=== PATIENT | female | born 1940 | race Caucasian/White ===

== ENCOUNTER 2017-02-09 08:37 | Inpatient (IN) ==
[2017-02-07 17:45] LABS: Basophils # (Auto) 0.1 K/mcL (0.0-0.3); Basophils % (Auto) 0.9 % (0.0-2.0); Eosinophils # (Auto) 0.1 K/mcL (0.0-0.7); Eosinophils % (Auto) 2.5 % (0.0-7.0); Granulocytes % (Auto) 48.2 % (38.0-78.0); Lymphocytes # (Auto) 2.5 K/mcL (1.5-4.8); Lymphocytes % (Auto) 41.8 % (15.5-49.0); Mean Cell Volume 90.6 fL (80.0-100.0); Mean Corpuscular HGB Conc 34.1 g/dL (31.0-36.0); Mean Corpuscular Hemoglobin 30.9 pg (26.0-34.0); Monocytes # (Auto) 0.4 K/mcL (0.1-0.9); Monocytes % (Auto) 6.6 % (1.0-12.0); Platelet Count 278 K/mcL (140-440); RBC 3.95 M/mcL (4.00-5.20); Red Cell Distribution Width 13.8 % (11.5-14.5)
[2017-02-07 18:11] LABS: Blood Urea Nitrogen 23 mg/dl (8-23)
[2017-02-07 18:25] LABS: Appearance,Urine CLEAR; Bacteria,Urine 0 /hpf (0); Bilirubin,Urine NEG (NEG); Color,Urine YELLOW; Glucose,Urine (UA) NEGATIVE (NEG); Leukocyte Esterase,Urine 250 /uL (NEG); Mucus,Urine FEW /hpf (0); Nitrate,Urine NEG (NEG); Protein,Urine NEG (NEG); Specific Gravity,Urine 1.018 (1.000-1.035); Urine Blood NEG mg/dL (<0.03); Urine RBC 0 /hpf (0-1); Urine Squamous Epithelial Cell 1 /hpf (0-4); Urine WBC 12 /hpf (0-4); Urobilinogen,Urine NEG (NEG)
[~2017-02-09 08:37] MED LIST: ACETAMINOPHEN 500 MG TABLET PO SCH; CELECOXIB 200 MG CAPSULE PO SCH; PREGABALIN 75 MG CAPSULE PO SCH; ceFAZolin 1 GM VIAL IV SCH; oxyCODONE 10 MG TAB.ER.12H PO SCH
[2017-02-09 09:41] LABS: Appearance,Urine HAZY; Bacteria,Urine 0 /hpf (0); Bilirubin,Urine NEG (NEG); Color,Urine YELLOW; Glucose,Urine (UA) NEGATIVE (NEG); Leukocyte Esterase,Urine 25 /uL (NEG); Mucus,Urine MOD /hpf (0); Nitrate,Urine NEG (NEG); Protein,Urine NEG (NEG); Specific Gravity,Urine 1.019 (1.000-1.035); Urine Blood NEG mg/dL (<0.03); Urine Hyaline Cast 37 /lpf (0-2); Urine RBC 3 /hpf (0-1); Urine Squamous Epithelial Cell < 1 /hpf (0-4); Urine WBC 3 /hpf (0-4); Urobilinogen,Urine NEG (NEG)
[2017-02-09] MEDS ORDERED: KETOROLAC 30 MG, ROPIVACAINE HCL/PF 49.5 ML, EPINEPHrine 0.5 MG, 0.9 % SODIUM CHLORIDE ... IJ ONE (11:00)
[2017-02-09] MEDS ORDERED: SCOPOLAMINE 1 PATCH PATCH TOPICAL ONE (12:47)
[2017-02-09] MEDS ORDERED: ROPIVACAINE HCL/PF 20 ML VIAL IJ ONE (13:00)
[2017-02-09] MEDS ORDERED: MIDAZOLAM 2 MG/2 ML VIAL IV ONE (13:00)
[2017-02-09] MEDS ORDERED: DEXAMETHASONE 10 MG/ML VIAL IV ONE (13:00)
[2017-02-09] MEDS ORDERED: KETAMINE 100 MG/ML ML IV ONE (13:00)
[2017-02-09] MEDS ORDERED: PROPOFOL 200 MG/20 ML VIAL IV ONE (13:00)
[2017-02-09] MEDS ORDERED: LIDOCAINE HCL/PF 100 MG/5 ML SYRINGE IV ONE (13:00)
[2017-02-09] MEDS ORDERED: GLYCOPYRROLATE 0.2 MG/ML VIAL IV ONE (13:00)
[2017-02-09] MEDS ORDERED: TRANEXAMIC ACID 1,000 MG/10 ML VIAL IV ONE (13:00)
[2017-02-09] MEDS ORDERED: ONDANSETRON 4 MG/2 ML VIAL IV ONE (13:00)
[2017-02-09] MEDS ORDERED: BENZOCAINE/MENTHOL 1 LOZENGE PO PRN ×2 (14:04→14:35)
[2017-02-09] MEDS ORDERED: fentaNYL 100 MCG/2 ML VIAL IV PRN (14:04)
[2017-02-09] MEDS ORDERED: MEPERIDINE 25 MG/ML SYRINGE IV PRN (14:04)
[2017-02-09] MEDS ORDERED: ONDANSETRON 4 MG/2 ML VIAL IV PRN ×2 (14:04→14:35)
[2017-02-09] MEDS ORDERED: METHOCARBAMOL 1,000 MG/10 ML VIAL IV PRN (14:04)
[2017-02-09] MEDS ORDERED: IPRATROPIUM/ALBUTEROL 3 ML AMPUL.NEB NEB PRN (14:04)
[2017-02-09] MEDS ORDERED: ePHEDrine 50 MG/ML AMPUL IV PRN (14:04)
[2017-02-09] MEDS ORDERED: METOCLOPRAMIDE 10 MG/2 ML VIAL IV PRN (14:04)
[2017-02-09] MEDS ORDERED: LACTATED RINGERS 1,000 ML IV SCH (14:15)
[2017-02-09] MEDS ORDERED: GENTAMICIN SULFATE 800 MG/20 ML VIAL IR ONE (14:18)
--- NOTE | 2017-02-09 14:34 | Brief Operative Note ---
Date of procedure: 02/09/17 Pre-op diagnosis: Left knee djd Post-op diagnosis: same Procedure: Left knee basilio tka Grafts/Implants: Yes Anesthesia: GETA Complications: none Complications Description: 02/09/17 14:34 none Surgeon: Valerio Alvarenga Chemical Tester: Munir Ortega Estimated blood loss (cc): 20 Tourniquet Time (Minutes): 50 Specimens Removed/Pathology: none sent Condition: stable Disposition: PACU
[2017-02-09] MEDS ORDERED: HYDROmorphone 2 MG/ML SYRINGE IV PRN (14:35)
[2017-02-09] MEDS ORDERED: TRANEXAMIC ACID 1,000 MG/10 ML VIAL IV SCH (14:35)
[2017-02-09] MEDS ORDERED: MAGNESIUM HYDROXIDE 30 ML ORAL.SUSP PO PRN (14:35)
[2017-02-09] MEDS ORDERED: POLYETHYLENE GLYCOL 3350 17 GM PACKET PO PRN (14:35)
[2017-02-09] MEDS ORDERED: FLEETS ADULT ENEMA PR PRN (14:35)
[2017-02-09] MEDS ORDERED: ACETAMINOPHEN 325 MG TABLET PO PRN (14:35)
[2017-02-09] MEDS ORDERED: BISACODYL 10 MG SUPP.RECT PR PRN (14:35)
[2017-02-09] MEDS ORDERED: ACETAMINOPHEN 500 MG TABLET PO PRN (14:47)
--- NOTE | 2017-02-09 15:16 | XRay Report ---
HISTORY: Reason for Exam:Post-Op Total Knee FINDINGS: There is a well positioned total knee prosthesis. There is no fracture. IMPRESSION: Well-positioned left knee prosthesis Interpreted and Authenticated by: Suresh Iglesias 02/09/17
--- NOTE | 2017-02-09 16:28 | Operative Note ---
DATE OF OPERATION: 02/09/2017 PREOPERATIVE DIAGNOSIS: Left knee degenerative arthritis, severe. POSTOPERATIVE DIAGNOSIS: Left knee degenerative arthritis, severe. PROCEDURE: Left ANUJ robot total knee arthroplasty. SURGEON: Valerio Alvarenga M.D. CYTOTECHNOLOGIST: Munir Ortega PA-C. ANESTHESIA: General LMA anesthesia. COMPLICATIONS: None. TOTAL TOURNIQUET TIME: 50 minutes. ESTIMATED BLOOD LOSS: About 20 mL. IMPLANTS: A size 2 femur, size 2 tibia with an 11 mm poly with a 38 mm patella. DESCRIPTION OF PROCEDURE: The patient was brought to the operating room and put to sleep with general LMA anesthesia. Once asleep, the patient had the left leg sterilely prepped and draped in the usual sterile fashion. Once this was confirmed as the operative site, I then made a midline incision, a mid vastus approach performed. We then placed two pins above and below the knee. I predrilled the tibia with the drill and then placed the pins. I then placed the arrays, registered the center hip rotation. We then removed osteophytes and balanced the knee after placing and registering 30 points on the femur and tibia. Once this was done, we irrigated thoroughly. We then brought in the robot, registered the robot and then made our cuts accordingly. This made our distal femoral cut, made our anterior and posterior cut and made our tibial cut. The bony fragments were removed and removed osteophytes posteriorly. We then removed the meniscus medially and laterally. We then placed the components, set rotation of the tibial baseplate. I then balanced the knee with a 9 poly. This was a little too loose with range of motion. I then placed an 11 mm poly. I then implanted the size 2 tibial baseplate with cement after preparing the bone with pulse lavage and CarboJet. Once dried, I then placed the cement on the bone and then placed the implant with appropriate external rotation. The femoral component was placed with excess cement being removed. We placed an 11 mm poly, prepared the patella with a 32 mm patella. This covered the patella nicely with a small chamfer cut laterally. This was cemented into place after preparing the bone to the patella with CarboJet and pulse lavage. I irrigated thoroughly and deflated the tourniquet at 50 minutes and then controlled bleeding. I made sure there was no more debris, took the knee through range of motion after the cement had dried. We kept it at 45 degrees until cement was dry. We then closed the capsule with #1 Stratafix. Two Stratafix sutures were used to close the medial capsule. We closed the skin with 2-0 Vicryl and adhesive closure. Once closed, I took the knee through range of motion which was excellent, very stable. Using the robot to register the final implant was 0 degrees extension, varus valgus 1 degree of varus. This was perfectly aligned. We irrigated thoroughly and then placed a sterile bandage on the knee. The patient tolerated this well without complication. [email or web address] Job ID: [id number] Doc ID: [id number] Valerio Alvarenga MD
[2017-02-09] MEDS: HYDROcodone/APAP 10/325MG TABLET PO PRN ×2 (16:58→23:16)
[2017-02-09] MEDS: KETOROLAC 15 MG/ML VIAL IV SCH (16:59)
[2017-02-09] MEDS: 0.45 % SODIUM CHLORIDE 1,000 ML IV SCH (17:01)
[2017-02-09] MEDS: 0.9 % SODIUM CHLORIDE 10 ML SYRINGE IV SCH (20:03)
[2017-02-09] MEDS: MAGNESIUM OXIDE 400 MG TABLET PO SCH (20:03)
[2017-02-09] MEDS: ASPIRIN 325 MG ENTERIC COATED TABLET PO SCH (20:03)
[2017-02-09] MEDS: FISH OIL 1,000 MG CAPSULE PO SCH (20:03)
[2017-02-09] MEDS: DOCUSATE SODIUM 100 MG CAPSULE PO SCH (20:03)
[2017-02-09] MEDS: ceFAZolin 1 GM VIAL IV SCH (20:16)
[2017-02-09] MEDS ORDERED: ATORVASTATIN 20 MG TABLET PO SCH (21:00)
[2017-02-09] MEDS ORDERED: TEMAZEPAM 15 MG CAPSULE PO PRN (21:00)
[2017-02-09] MEDS ORDERED: SENNOSIDES 1 TABLET PO SCH (21:00)
[2017-02-10] MEDS: KETOROLAC 15 MG/ML VIAL IV SCH ×3 (00:44→12:21)
[2017-02-10] MEDS: 0.45 % SODIUM CHLORIDE 1,000 ML IV SCH ×2 (00:45→12:02)
[2017-02-10] MEDS: ceFAZolin 1 GM VIAL IV SCH (05:33)
[2017-02-10] MEDS: 0.9 % SODIUM CHLORIDE 10 ML SYRINGE IV SCH ×2 (05:33→16:06)
[2017-02-10] MEDS ORDERED: LEVOTHYROXINE 25 MCG TABLET PO SCH (07:30)
[2017-02-10] MEDS ORDERED: BIOTIN 10000 MCG PO SCH (09:00)
[2017-02-10] MEDS ORDERED: VIT A,C & E/LUTEIN/MINERALS TABLET PO SCH (09:00)
[2017-02-10] MEDS ORDERED: LOSARTAN 50 MG TABLET PO SCH (09:00)
[2017-02-10] MEDS ORDERED: amLODIPine 5 MG TABLET PO SCH (09:00)
[2017-02-10] MEDS ORDERED: MULTIVIT,THER IRON,CA,FA & MIN 1 TABLET PO SCH (09:00)
[2017-02-10] MEDS: ASPIRIN 325 MG ENTERIC COATED TABLET PO SCH (09:35)
[2017-02-10] MEDS: DOCUSATE SODIUM 100 MG CAPSULE PO SCH (09:35)
[2017-02-10] MEDS: FISH OIL 1,000 MG CAPSULE PO SCH (09:36)
[2017-02-10] MEDS: MAGNESIUM OXIDE 400 MG TABLET PO SCH (09:36)
[2017-02-10] MEDS: HYDROcodone/APAP 10/325MG TABLET PO PRN ×2 (09:46→11:18)
--- NOTE | 2017-02-10 10:45 | Discharge Summary ---
Ortho Discharge - TKA - Patient Instructions Diet: Regular Diet Activity: activity as tolerated, weight bearing as tolerated Total Knee Protocol: For Total Knee: Start ROM ISAIAH with stationary bike or rocking chair. Work on gaining full extension of knee. Posterior dislocation precautions provided. Hip abductor strengthening and gait training instructions provided. Apply Cryocuff as instructed. Dressing Care: Aquacel Ag - leave on for 5 days Patient Education: Total Knee Replacement (DC) Additional Instructions: Discharge Instructions: Do the exercises at home that physical therapy gave you. You are scheduled to start physical therapy at [facility] ([phone]) on at 1:30 pm, please arrive 15 minutes early for paperwork. Take your prescription, photo ID, insurance cards, and current medication list with you to your first physical therapy appointment. Take your prescription to [facility]le [facility] maker any medication or equipment (such as walker, crutches, toilet riser or C.P.M.) Wear comfortable clothing for your physical therapy. Weight bearing as tolerated. You have Dermabond (a dressing with a mesh-like appearance), leave open to air. Do not remove this dressing. You may start showering on post op day #2. The Dermabond dressing can get wet, do not scrub dressing. Pat dry. To avoid constipation while taking any narcotic pain medication, take an over the counter stool softener/laxative. Use your Cryocuff or ice packs as directed, on for 20 minutes at a time throughout the day. This and elevation will help with pain and swelling. Call your physician for fevers above 100.5 or pain not controlled by medication. Your prescriptions are with your discharge information. Some medications were electronically transmitted to your pharmacy of choice. - Follow Up Plan Follow Up Appointments: Valerio Alvarenga MD [Family Provider] - 02/22/17 9:30 am Disposition: Home, Self-Care Prognosis: Good Rehab Potential: Good I certify that the patient requires SNF services: No Overall status at discharge: patient is progressing back to baseline - Orders For Discharge Additional Discharge Orders: Physical Therapy at Discharge - TKA Location: Determined By Patient Toilet Riser Discharge Order Location: Determined By Patient Walker Location: Determined By Patient
--- NOTE | 2017-02-10 10:52 | Discharge Summary ---
Ortho Discharge - TKA - Patient Instructions Diet: Regular Diet Activity: activity as tolerated, weight bearing as tolerated Total Knee Protocol: For Total Knee: Start ROM ISAIAH with stationary bike or rocking chair. Work on gaining full extension of knee. Posterior dislocation precautions provided. Hip abductor strengthening and gait training instructions provided. Apply Cryocuff as instructed. Patient Education: Total Knee Replacement (DC) Additional Instructions: Discharge Instructions: Do the exercises at home that physical therapy gave you. You are scheduled to start physical therapy at [facility] ([phone]) on at 1:30 pm, please arrive 15 minutes early for paperwork. Take your prescription, photo ID, insurance cards, and current medication list with you to your first physical therapy appointment. Take your prescription to pickler helper any medication or equipment (such as walker, crutches, toilet riser or C.P.M.) Wear comfortable clothing for your physical therapy. Weight bearing as tolerated. You have Dermabond (a dressing with a mesh-like appearance), leave open to air. Do not remove this dressing. You may start showering on post op day #2. The Dermabond dressing can get wet, do not scrub dressing. Pat dry. To avoid constipation while taking any narcotic pain medication, take an over the counter stool softener/laxative. Use your Cryocuff or ice packs as directed, on for 20 minutes at a time throughout the day. This and elevation will help with pain and swelling. Call your physician for fevers above 100.5 or pain not controlled by medication. Your prescriptions are with your discharge information. Some medications were electronically transmitted to your pharmacy of choice. - Follow Up Plan Follow Up Appointments: Valerio Alvarenga MD [Family Provider] - 02/22/17 9:30 am Disposition: Home, Self-Care Prognosis: Good Rehab Potential: Good I certify that the patient requires SNF services: No - Orders For Discharge Prescriptions: oxyCODONE/APAP [Percocet 5-325 mg] 1 - 2 tab PO Q4H PRN #60 tab PRN Reason: Pain Additional Discharge Orders: Physical Therapy at Discharge - TKA Location: Determined By Patient CPM Discharge Order Location: Determined By Patient Toilet Riser Discharge Order Location: Determined By Patient Walker Location: Determined By Patient
[2017-02-11] MEDS ORDERED: VITAMIN D3 1,000 UNIT TABLET PO SCH (09:00)
== END 2017-02-10 16:50 | disposition home or self-care (01) | DRG 470 ==
LOC: MEDSUR 08:37
PROVIDERS: ADMIT Orthopaedic Surgery; ATTEND Orthopaedic Surgery

== ENCOUNTER 2019-11-24 05:59 | Inpatient (IN) ==
[2019-11-17 15:10] LABS: Basophils # (Auto) 0.05 K/mcL (0.00-0.30); Eosinophils # (Auto) 0.25 K/mcL (0.00-0.70); Eosinophils % (Auto) 4.8 % (0.0-7.0); Granulocytes % (Auto) 44.6 % (38.0-78.0); Hemoglobin 11.2 g/dL (11.2-15.7); Lymphocytes # (Auto) 2.06 K/mcL (1.50-4.80); Lymphocytes % (Auto) 39.9 % (15.5-49.0); Mean Cell Volume 90.9 fL (80.0-100.0); Mean Platelet Volume 9.2 fL (7.4-10.4); Monocytes % (Auto) 9.7 % (1.0-12.0); Platelet Count 390 K/mcL (140-440); RBC 3.85 M/mcL (3.59-5.38); Red Cell Distribution Width 14.6 % (11.5-14.5); WBC 5.2 K/mcL (4.50-11.00)
[2019-11-17 15:11] LABS: Blood Urea Nitrogen 21 mg/dl (8-23); Calcium 9.6 mg/dl (8.6-10.4); Carbon Dioxide 23 mmol/L (22-30); Chloride 99 mmol/L (96-108); Glomerular Filtration Rate 48; Glucose 85 mg/dL (70-105)
[2019-11-17 16:10] LABS: Appearance,Urine CLEAR; Bacteria,Urine FEW /hpf (0); Bilirubin,Urine NEG (NEG); Color,Urine YELLOW; Culture Indicated,Urine YES; Glucose,Urine (UA) NEGATIVE (NEG); Ketones,Urine NEG (NEG); Leukocyte Esterase,Urine 75 /uL (NEG); Nitrate,Urine NEG (NEG); Protein,Urine NEG (NEG); Specific Gravity,Urine 1.019 (1.000-1.035); Urine Blood NEG mg/dL (<0.03); Urine Hyaline Cast 8 /lpf (0-2); Urine RBC 1 /hpf (0-1); Urine Squamous Epithelial Cell 1 /hpf (0-4); Urine WBC 14 /hpf (0-4); Urobilinogen,Urine NEG (NEG)
[2019-11-17 16:15] LABS: INR 0.9 (0.9-1.1); Prothrombin Time 12.9 sec (11.9-14.5)
[~2019-11-24 05:59] MED LIST changes: -ACETAMINOPHEN 500 MG TABLET PO SCH; -CELECOXIB 200 MG CAPSULE PO SCH; +IPRATROPIUM/ALBUTEROL 3 ML AMPUL.NEB NEB PRN; -PREGABALIN 75 MG CAPSULE PO SCH; +SCOPOLAMINE 1 PATCH PATCH TOPICAL PRN; -ceFAZolin 1 GM VIAL IV SCH; -oxyCODONE 10 MG TAB.ER.12H PO SCH
[2019-11-24] MEDS ORDERED: ACETAMINOPHEN 500 MG TABLET PO SCH (06:00)
[2019-11-24] MEDS ORDERED: CELECOXIB 200 MG CAPSULE PO SCH (06:00)
[2019-11-24] MEDS ORDERED: ceFAZolin 2 GM in DEXTROSE 5% IN WATER 50 ML IV SCH (06:00)
[2019-11-24] MEDS ORDERED: PREGABALIN 75 MG CAPSULE PO SCH (06:00)
[2019-11-24] MEDS ORDERED: oxyCODONE 10 MG TAB.ER.12H PO SCH (06:00)
[2019-11-24 07:20] LABS: Appearance,Urine CLEAR; Bilirubin,Urine NEG (NEG); Color,Urine YELLOW; Glucose,Urine (UA) NEGATIVE (NEG); Ketones,Urine NEG (NEG); Leukocyte Esterase,Urine NEG /uL (NEG); Nitrate,Urine NEG (NEG); Protein,Urine NEG (NEG); Specific Gravity,Urine 1.018 (1.000-1.035); Urine Blood NEG mg/dL (<0.03); Urobilinogen,Urine NEG (NEG)
[2019-11-24] MEDS ORDERED: fentaNYL 250 MCG/5 ML VIAL IV ONE (09:29)
[2019-11-24] MEDS ORDERED: TRANEXAMIC ACID 1,000 MG/10 ML VIAL IV ONE ×2 (09:29→10:35)
[2019-11-24] MEDS ORDERED: DEXAMETHASONE 10 MG/ML VIAL IV ONE (09:29)
[2019-11-24] MEDS ORDERED: GLYCOPYRROLATE 0.2 MG/ML VIAL IV ONE (09:29)
[2019-11-24] MEDS ORDERED: SUCCINYLCHOLINE 20 MG/ML ML IV ONE (09:29)
[2019-11-24] MEDS ORDERED: PROPOFOL 200 MG/20 ML VIAL IV ONE (09:29)
[2019-11-24] MEDS ORDERED: ONDANSETRON 4 MG/2 ML VIAL IV ONE (09:29)
[2019-11-24] MEDS ORDERED: LIDOCAINE HCL/PF 100 MG/5 ML SYRINGE IV ONE (09:29)
[2019-11-24] MEDS ORDERED: KETAMINE 100 MG/ML ML IV ONE (09:29)
[2019-11-24] MEDS ORDERED: ROPIVACAINE HCL/PF 20 ML VIAL IJ ONE (09:29)
--- NOTE | 2019-11-24 10:34 | Brief Operative Note ---
Brief Operative Note Date of procedure: 11/24/19 Pre-op diagnosis: right shoulder rca Post-op diagnosis: same Procedure: Right reverse tsa Grafts/Implants: Yes Anesthesia: GETA Findings: severe djd and rca Complications: none Surgeon: Valerio Alvarenga Hollow Handle Bench Worker: Munir Ortega Estimated blood loss (cc): 40 Tourniquet Time (Minutes): 0 Specimens Removed/Pathology: none sent Condition: stable Disposition: PACU
[2019-11-24] MEDS ORDERED: ONDANSETRON 4 MG/2 ML VIAL IV PRN (10:35)
[2019-11-24] MEDS ORDERED: KETOROLAC 15 MG/ML VIAL IV PRN (10:35)
[2019-11-24] MEDS ORDERED: HYDROmorphone 1 MG/ML SYRINGE IV PRN (10:35)
[2019-11-24] MEDS ORDERED: BISACODYL 10 MG SUPP.RECT PR PRN (10:35)
[2019-11-24] MEDS ORDERED: ACETAMINOPHEN 325 MG TABLET PO PRN (10:35)
[2019-11-24] MEDS ORDERED: FLEETS ADULT ENEMA PR PRN (10:35)
[2019-11-24] MEDS ORDERED: POLYETHYLENE GLYCOL 3350 17 GM PACKET PO PRN (10:35)
[2019-11-24] MEDS ORDERED: TEMAZEPAM 15 MG CAPSULE PO PRN (10:35)
[2019-11-24] MEDS ORDERED: MAGNESIUM HYDROXIDE 30 ML ORAL.SUSP PO PRN (10:35)
[2019-11-24] MEDS ORDERED: BENZOCAINE/MENTHOL 1 LOZENGE PO PRN (10:35)
[2019-11-24] MEDS ORDERED: HYDROcodone/APAP 10/325MG TABLET PO PRN (10:35)
[2019-11-24] MEDS ORDERED: NALOXONE HCL 0.4 MG/ML VIAL IV PRN (10:37)
[2019-11-24] MEDS ORDERED: IPRATROPIUM/ALBUTEROL 3 ML AMPUL.NEB NEB PRN (10:37)
[2019-11-24] MEDS ORDERED: METHOCARBAMOL 1,000 MG/10 ML VIAL IV PRN (10:37)
[2019-11-24] MEDS ORDERED: ACETAMINOPHEN 1,000 MG/100 ML BOTTLE IV ONE (10:37)
[2019-11-24] MEDS ORDERED: LACTATED RINGERS 250 ML IV PRN (10:37)
[2019-11-24] MEDS ORDERED: FLUMAZENIL 0.1 MG/ML ML IV PRN (10:37)
[2019-11-24] MEDS ORDERED: ACETAMINOPHEN 500 MG TABLET PO PRN (10:39)
[2019-11-24] MEDS ORDERED: LACTATED RINGERS 1,000 ML IV SCH (10:45)
--- NOTE | 2019-11-24 10:51 | Discharge Plan ---
Discharge Instructions - [facility] Patient Instructions Total Shoulder Protocol: Leave immobilizer in place except for bathing and ROM. Abduction pillow. Continue to wear sling until seen by physician. Codman Pendulum : These exercises use momentum produced by your body to move your shoulder joint. Bend your knees and shift your weight to your front leg, then back, allowing your arm to swing in the same directions. Using the same technique, alternately shift your weight between your right and left legs, allowing your arm to swing from side to side. These exercises are also performed in counterclockwise and clockwise circular motions. Typically these exercises are performed several times per day, for a set number repetitions or minutes, such as 20 times in a row or 5 minutes at a time. Discharge Plan Patient/Caregiver Discharge Instructions Activity: increase activity as tolerated Diet: Regular Diet Prescriptions: New hydrocodone-acetaminophen 10-325 mg Tablet 1 - 2 tab PO Q4HP PRN (Reason: Pain Level 3-6) Qty: 75 RF: 0 docusate sodium 100 mg Capsule 100 mg PO BID Qty: 60 RF: 0 No Action losartan [Cozaar] 50 MG tablet 100 mg PO DAILY RF: 0 atorvastatin 20 MG tablet 20 mg PO HS RF: 0 amlodipine 5 MG tablet 5 mg PO DAILY RF: 0 acetaminophen [Tylenol Extra Strength] 500 MG tablet 500 mg PO TIDP PRN (Reason: Pain) RF: 0 levothyroxine 25 MCG tablet 25 mcg PO QAMAC RF: 0 magnesium oxide 400 MG tablet 400 mg PO DAILY RF: 0 biotin 10,000 MCG capsule 10,000 mcg PO DAILY RF: 0 Thera M Plus (ferrous fumarat) 1 TAB tablet 1 tab PO DAILY RF: 0 Healthy Eyes Lutein-Zeaxanthin 1 TAB capsule 1 tab PO DAILY RF: 0 Other Ambulatory Orders: Brace/Splint (ONCE) Location: None Selected Ordered By: Munir Ortega Physical Therapy DC - TSA (Routine) Location: None Selected Ordered By: Munir Ortega Follow Up Plan Follow up with: Munir Ortega PA-C [Physician Velocity Shooter] - 12/09/19 10:10 am Patient Disposition: Home, Self-Care Prognosis: Good Rehab Potential: Good I certify that the patient requires SNF services: No Overall status at discharge: patient is progressing back to baseline Discharge Orders: Discharge Order (Routine); Ordered 11/25/19 Ordered By: Munir Ortega
[2019-11-24] MEDS ORDERED: GENTAMICIN SULFATE 800 MG/20 ML VIAL IR ONE (11:02)
--- NOTE | 2019-11-24 11:10 | Operative Note ---
DATE OF OPERATION: 11/24/2019 PREOPERATIVE DIAGNOSIS: Right shoulder rotator cuff arthropathy, severe arthritis. POSTOPERATIVE DIAGNOSIS: Right shoulder rotator cuff arthropathy, severe arthritis. PROCEDURE: Right reverse total shoulder arthroplasty. SURGEON: Valerio Alvarenga MD ANIMAL SCIENTIST: Mnuir Ortega PA-C. This provider's expertise and technical skill were required throughout the case. The CAMRON assisted with preoperative coordination, intraoperative retraction, wound closure, dressing and splint application, as well as postoperative documentation and care coordination. ANESTHESIA: General LMA anesthesia. COMPLICATIONS: None. ESTIMATED BLOOD LOSS: About 50 mL DESCRIPTION OF PROCEDURE: The patient was brought to the operating room and put to sleep with general LMA anesthesia. Ioban was placed over the skin and stockinette over the hand. We confirmed the site by initials, consent form and x-rays. Once done, we confirmed that preoperative antibiotics and tranexamic acid had been given. A deltopectoral approach was performed. The deltoid and cephalic vein was retracted laterally. The capsule was released, conjoined tendon retracted medially. We tagged the capsule, which was then moved medially and a lot of fluid came from the shoulder joint. Once this had been done, we then made our neck cut at the humeral head at 135 degrees. This was subluxed posteriorly. We performed a 360-degree capsular release around the glenoid. A central pin was placed and we reamed to bleeding bone. Once done, we placed the metaglene with a 40 mm screw, a 36 mm screw and a 32 mm screw for fixation. We irrigated and placed a 36 mm glenosphere with 2 mm of offset and 2 mm of eccentricity. Once this was done, we broached the humerus up to the size of 9. We then trialed the 9 stem with a 4 and a 6 mm thick poly. The 6 was the most appropriate for tension and play within the shoulder. We irrigated thoroughly. We then placed a cementless stem with a small amount of cement distally and then a 6 mm thick poly liner. This was reduced. We irrigated thoroughly and it was very stable. We then repaired the fascial layer with Stratafix and closed the skin with Stratafix and adhesive closure. The patient tolerated this well. There was no complication. A DonJoy sling was fitted and given to the patient. [email or web address] Job ID: [id number] Doc ID: [id number] Valerio Alvarenga MD
[2019-11-24] MEDS: fentaNYL 100 MCG/2 ML VIAL IV PRN ×2 (11:25→11:33)
--- NOTE | 2019-11-24 11:28 | XRay Report ---
HISTORY: Follow-up right shoulder arthroplasty FINDINGS: There is a well-positioned reverse total shoulder prosthesis. No fracture or subluxation are present. There are no abnormal soft tissue calcifications around the joint. Lung volumes are small due to poor inspiration. There are prominent lung markings which may be crowding of normal pulmonary vascular structures. IMPRESSION: Well-positioned right shoulder prosthesis Interpreted and Authenticated by: Suresh Iglesias 11/24/19
[2019-11-24] MEDS: LACTATED RINGERS 1,000 ML IV SCH ×2 (12:11→22:39)
[2019-11-24] MEDS: 0.9 % SODIUM CHLORIDE 10 ML SYRINGE IV SCH ×2 (14:44→21:37)
[2019-11-24] MEDS: oxyCODONE/APAP 5/325MG TABLET PO PRN ×2 (15:11→19:10)
[2019-11-24] MEDS: ceFAZolin 1 GM VIAL IV SCH (17:57)
[2019-11-24] MEDS: DOCUSATE SODIUM 100 MG CAPSULE PO SCH (20:39)
[2019-11-24] MEDS ORDERED: SENNOSIDES 1 TABLET PO SCH (21:00)
[2019-11-24] MEDS ORDERED: ATORVASTATIN 20 MG TABLET PO SCH (21:00)
[2019-11-25] MEDS: ceFAZolin 1 GM VIAL IV SCH (00:23)
[2019-11-25] MEDS: oxyCODONE/APAP 5/325MG TABLET PO PRN ×2 (03:34→08:13)
[2019-11-25] MEDS: 0.9 % SODIUM CHLORIDE 10 ML SYRINGE IV SCH (06:05)
[2019-11-25] MEDS: LACTATED RINGERS 1,000 ML IV SCH (06:27)
[2019-11-25] MEDS ORDERED: LEVOTHYROXINE 25 MCG TABLET PO SCH (07:30)
[2019-11-25] MEDS: DOCUSATE SODIUM 100 MG CAPSULE PO SCH (08:12)
[2019-11-25] MEDS ORDERED: MAGNESIUM OXIDE 400 MG TABLET PO SCH (09:00)
[2019-11-25] MEDS ORDERED: MULTIVIT,THER IRON,CA,FA & MIN 1 TABLET PO SCH (09:00)
[2019-11-25] MEDS ORDERED: VIT A,C & E/LUTEIN/MINERALS TABLET PO SCH (09:00)
[2019-11-25] MEDS ORDERED: LOSARTAN 50 MG TABLET PO SCH (09:00)
[2019-11-25] MEDS ORDERED: amLODIPine 5 MG TABLET PO SCH (09:00)
== END 2019-11-25 10:12 | disposition home or self-care (01) | DRG 483 ==
LOC: MEDSUR 05:59
PROVIDERS: ADMIT Orthopaedic Surgery; ATTEND Orthopaedic Surgery